=== PATIENT | male | born 1955 | race African-American/Black ===

== ENCOUNTER 2020-06-15 02:04 | Inpatient (IN) | payer MEDICARE ==
[2020-06-15] MEDS ORDERED: Acetaminophen 325 MG TAB PO PRN ×3 (04:27→15:26)
[2020-06-15] MEDS ORDERED: HumaLOG 300 UNITS/3 ML VIAL SC PRN (04:54)
[2020-06-15] MEDS ORDERED: Dextrose 5% in Water 1,000 ML IV PRN (04:54)
[2020-06-15] MEDS ORDERED: Dextrose 50% Abboject 50 ML SYRINGE SLOW IVP PRN (04:54)
--- NOTE | 2020-06-15 05:03 | PDOC.BPN ---
- Brief Progress Note [id number] HP dictated
[2020-06-15 05:28] LABS: #Basophils 0.1 thou/uL (0.0-0.2); #Eosinphils 0.1 thou/uL (0.0-0.7); #Lymphocytes 2.7 thou/uL (1.20-3.40); #Monocytes 0.5 thou/uL (0.11-0.59); #Neutrophils 3.7 thou/uL (1.40-6.50); %Basophils 1.4 % (0.0-1.0); %Eosinophils 1.3 % (0.0-10.0); %Monocytes 7.4 % (0.0-10.0); %Neutrophils 51.9 % (42.0-75.0); Hemoglobin 14.6 g/dL (14.0-18.0); Mean Corpuscular HGB CONC 33.6 g/dL (32.0-36.0); Mean Corpuscular Hemoglobin 32.2 pg (27.0-31.0); Mean Corpuscular Volume 95.8 fL (78.0-98.0); Mean Platelet Volume 7.9 fL (7.4-10.4); Platelet Count 222 thou/uL (130-400); RBC Distribution Width 12.3 % (11.5-14.5); Red Blood Cell (RBC) Count 4.54 mill/uL (4.70-6.10); White Blood Cell (WBC) Count 7.1 thou/uL (4.8-10.8)
--- NOTE | 2020-06-15 05:42 | HP ---
CHIEF COMPLAINT: Possible stroke. HISTORY OF PRESENT ILLNESS: Mr. Nath is a 64-year-old male with past medical history of diabetes mellitus, type 2, hyperlipidemia, benign prostatic hypertrophy and cigarette smoker, is being transferred to our facility for possible stroke. The patient reports at some point during the day he developed headache and dizziness. Apparently his daughter came home and felt like he had slurred speech and was dragging his left leg. He started having numbness on the left side of his face on Thursday. He was seen at [facility] in [place], where he had CT scan of the head, which showed acute right MCA infarct. CT angiogram reportedly showed occlusion of the right MCA and perfusion showed salvageable brain tissue. Dr. Madrigal was consulted and asked that the patient be transferred here. ED physicians discussed the case with Dr. Madrigal prior to transfer and he reported intervention is not likely. 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 The patient denies word-finding or difficulty with speech. He has no visual changes. The patient said that he feels dizzy when he stands up. PAST MEDICAL HISTORY: As mentioned above in the history of present illness. PAST SURGICAL HISTORY: Tonsils. FAMILY HISTORY: Reviewed, noncontributory. SOCIAL HISTORY: He smokes half pack per day. Denies alcohol drinking, drug abuse. FAMILY HISTORY: Reviewed and noncontributory. ALLERGIES: NO KNOWN ALLERGIES. REVIEW OF SYSTEMS: Review of 14 systems negative except as mentioned in the history of present illness. PHYSICAL EXAMINATION: GENERAL: The patient is awake and alert, does not appear to be in acute distress. VITAL SIGNS: Blood pressure 142/81, pulse is 74, respiratory rate is 18, temperature 98.3, oxygen saturation 99% on room air. HEAD AND NECK: Normocephalic, atraumatic. NECK: Supple. No JVD. CHEST: Fair bilateral air entry. HEART: S1, S2. Regular. ABDOMEN: Soft, nontender. Bowel sounds present. NEUROLOGIC: Awake, alert, oriented x3. No focal deficits can be appreciated at this time, but the patient said he gets dizzy once he starts walking. LABORATORY DATA: Labs not available at this time. We will order labs, CT of the brain as mentioned above in history of present illness. ASSESSMENT: 1. Acute right middle cerebral artery infarct/cerebrovascular accident. 2. Diabetes mellitus type 2. 3. Hyperlipidemia. 4. Cigarette smoker. PLAN: 1. Admit. 2. Tele monitor. 3. Aspirin was given in the emergency room. 4. Neurosurgery was consulted by ED physician. 5. Consult Neurology in a.m. for evaluation and further management. 6. Reconcile home medications. 7. DVT prophylaxis as appropriate. 8. 2D echo. 9. Lipid panel. 10. Expected length of stay, 2 midnights or more. Job ID: [id number]
[2020-06-15 05:52] LABS: ALT (SGPT) 16 U/L (8-55); AST (SGOT) 17 U/L (5-34); Albumin 3.9 g/dL (3.4-4.8); Alkaline Phosphatase 86 U/L (40-110); Anion Gap 15 mmol/L (10-20); BUN (Urea Nitrogen) 12 mg/dL (8.4-25.7); Bilirubin, Total 0.6 mg/dL (0.2-1.2); Calc. Creatinine Clearance 0 mL/min (70-130); Carbon Dioxide 24 mmol/L (23-31); Chloride 104 mmol/L (98-107); Estimated GFR-MDRD 72; Globulin 2.4 g/dL (2.4-3.5); Glucose 100 mg/dL (80-115); Potassium 3.6 mmol/L (3.5-5.1); Protein, Total 6.3 g/dL (5.8-8.1); Sodium 139 mmol/L (136-145)
--- NOTE | 2020-06-15 07:40 | CT ---
PRELIMINARY REPORT/[facility]/EMERGENCY AFTER HOURS PROCEDURE: EXAM: CT Head Without Intravenous Contrast. CLINICAL HISTORY: Unactivated stroke transfer, left side weakness// TECHNIQUE: Axial computed tomography images of the head/brain without intravenous contrast. COMPARISON: None provided. FINDINGS: BRAIN: Cortical-based low density noted in the posterior aspect of the right MCA distribution which appears to be more subacute than acute without mass-effect on the adjacent posterior horn of the right latera l ventricle. Ischemic changes extend to the insular ribbon anteriorly and superiorly towards the con vexity. No hemorrhage identified. VENTRICLES: No hydrocephalus. ORBITS: The orbits are unremarkable. SINUSES AND MASTOIDS: The paranasal sinuses and mastoid air cells are clear. SOFT TISSUES: No significant facial or scalp soft tissue swelling evident. No radiopaque foreign body is seen. BONES: No acute skull fracture. IMPRESSION: Acute-subacute right MCA infarct. ELECTRONICALLY SIGNED BY: Liam Concepcion MD Jun 15, 2020 4:00:38 AM AIRPLANE CABIN ATTENDANT This report is intended for review by the ordering physician only, in accordance of law. If you recei ve this report in error, please call [facility] at [phone]. FINAL REPORT EMERGENT AFTER HOURS CT OF THE BRAIN WITHOUT CONTRAST: FINDINGS/IMPRESSION: I agree with the findings and impression given in the preliminary report per [facility] physici an. There is a right MCA distribution infarction. No intracranial hemorrhage is identified. POS: ISAIAH
--- NOTE | 2020-06-15 09:30 | MRI ---
Exam: Brain MRI without contrast HISTORY: Left-sided weakness. CVA. Stroke. COMPARISON: None FINDINGS: Calvarial marrow signal intensity: Appropriate T1 signal Gradient echo sequence: Hemosiderin deposition involving the right occipital lobe. Findings represent hemorrhagic conversion of a right MCA distribution infarct Brain parenchyma: Encephalomalacia and gliosis involving the right occipital temporal lobe. Distribut ion corresponds to right MCA distribution infarct. Cortical ivey-white matter differentiation: Left cerebrum demonstrates preservation of cortical ivey- white white matter differentiation Restricted diffusion: Central arterial flow is maintained. Abrupt termination of flow void in the rig ht M2 segment at the level of sylvian fissure. There is restricted diffusion in the right MCA distribution. White matter signal intensities:Edema and gliosis with resultant FLAIR signal intensity in the right MCA distribution. Sinuses: Adequate aeration of the paranasal sinuses and mastoid air cells. IMPRESSION: 1. Right MCA distribution infarct. 2. Occlusion of the right M2 segment at the level of the sylvian fissure
[2020-06-15] MEDS ORDERED: Aspirin 325 MG TAB ONE (09:40)
[2020-06-15] MEDS ORDERED: Enoxaparin Sodium 40 MG/0.4 ML SYRINGE ONE (09:40)
[2020-06-15] MEDS: Enoxaparin Sodium 40 MG/0.4 ML SYRINGE SC SCH (09:46)
[2020-06-15] MEDS: Aspirin 325 mg Enteric Coated Tablet PO SCH (09:46)
[2020-06-15 12:47] LABS: SARS-CoV-2 MS2 Positive; SARS-CoV-2 N Gene Negative; SARS-CoV-2 S Gene Negative; SARS-CoV-2 by NAA Not Detected (NotDetected); SARS-CoV-2 orf1ab Negative
[2020-06-15 13:01] VITALS: BMI 24.8
--- NOTE | 2020-06-15 14:02 | CON ---
NEUROLOGY CONSULTATION DATE OF CONSULTATION: 06/15/2020 REASON FOR CONSULTATION: Stroke. HISTORY OF PRESENT ILLNESS: Mr. Nath is a 64-year-old male with medical history significant for diabetes, hyperlipidemia, benign prostatic hypertrophy, and tobacco abuse, transferred to our facility for possible stroke. Per the patient, he developed headache and dizziness with slurred speech, which was noted by his daughter, and he was also reported to be dragging his left leg. The patient started having numbness on the left side of the face on Thursday and was seen at [facility] in [place], where he had a head CT done, which showed acute right MCA infarct. CT angiogram showed occlusion of the right MCA and perfusion showed salvageable brain tissue. Dr. Madrigal was consulted and asked that the patient be transferred to [facility]. The ED physician discussed the case with Dr. Madrigal prior to transfer and he reported intervention is not likely at this point. The patient had chronic numbness of the left upper extremity from previous brachial plexopathy. Currently, he does have weakness of the left upper and lower extremity with balance issues and mild left facial droop. The patient denies nausea, vomiting, chest pain, abdominal pain, recent illness, or recent exposure to COVID. REVIEW OF SYSTEMS: All systems reviewed and were negative except the pertinent positives and negatives mentioned in the HPI. PAST MEDICAL HISTORY: Diabetes, hyperlipidemia, benign prostatic hypertrophy, and tobacco abuse. PAST SURGICAL HISTORY: Tonsillectomy. FAMILY HISTORY: No significant family history. SOCIAL HISTORY: The patient smokes half a pack a day. Denies drinking or illegal drug abuse. ALLERGIES: NO KNOWN DRUG ALLERGIES. PHYSICAL EXAMINATION: VITAL SIGNS: Blood pressure 142/80, pulse 70, respiratory rate 18. GENERAL: Alert and awake male, in no acute distress. CVS: Regular rate and rhythm. CHEST: Clear. ABDOMEN: Soft. NECK: Supple. NEUROLOGIC: Mental status, the patient is alert and oriented to person, place, and time. Speech is clear. Cranial nerves 2 through 12 are intact except mild left facial droop. Motor, muscle tone and bulk are normal. Strength 5/5 in the right upper and lower extremity, 4+/5 in the left lower extremity, and 3+/5 in the right upper extremity. Sensory, decreased sensation in the left upper extremity. Cerebellar, slow on the left secondary to weakness. Gait deferred due to the patient's safety reasons. DATA REVIEWED: I reviewed the CT of the brain, which was negative for acute intracranial pathology. MRI showed acute right MCA infarct. ASSESSMENT AND PLAN: Mr. Mario Nath is a 64-year-old male, presented with stroke-like symptoms and positive for acute infarction in the right middle cerebral artery territory. MRI of the brain reviewed, which was consistent with acute right middle cerebral artery infarction. CTA of the neck was unremarkable. CTA head showed occlusion of the right MCA. The patient was seen by Neurosurgery and he is not a candidate for mechanical embolectomy. 2D echo completed, left ventricular ejection fraction 55% to 60%, no thrombus or PFO. Telemetry to rule out arrhythmias. EEG to rule out cortical irritability because of right MCA infarction. Start aspirin and high-intensity statin for secondary stroke prevention, and continue home medications. Permissive control of blood pressure at this time. Control of blood glucose. Neuro checks every 4 hours Deep venous thrombosis prophylaxis. We will continue to follow. Plan discussed with the patient and the nursing staff Thank you for the consult. Job ID: [id number] [id number]
--- NOTE | 2020-06-15 14:10 | PRG ---
DATE OF SERVICE: 06/15/2020 Mr. Nath is a 64-year-old gentleman, who presented to the [facility] with altered mental status, hemiparesis, and slurred speech. He had a CT examination performed there, which shows area of hypodensity in the posterior frontal and parietal regions on the right side. He had a CT angiogram performed, which shows occlusion of the posterior branch of the M2 segment of the right middle cerebral artery. He was transferred to [facility] for further evaluation. Upon arrival, he underwent repeat CT examination, which showed further evolution and increase in size of the infarct. A decision was made not to move forward with mechanical thrombectomy due to the size of the infarct as well as the location of the clot in the distal aspect of the M2 segment. Job ID: [id number]
--- NOTE | 2020-06-15 17:20 | PDOC.EEG ---
Neurology EEG Report - Report Report: This EEG was performed using 24 channel [employer] video digital EEG machine with 24 disc electrodes. This was an extended 2-hour 10 minutes of inpatient video EEG recording. Digital analysis of the EEG was done for Brian and seizure detection which revealed no abnormalities Background: The posterior background rhythm is 9-10 hz. Minimal reactivity seen with eye opening and closure. Hyperventilation: Not performed. Photic stimulation. Bioccipital symmetric response seen with photic stimulation. Sleep: Drowsiness is observed. EEG diagnosis: Normal awake and drowsy EEG.
--- NOTE | 2020-06-15 17:28 | PDOC.HOSPP ---
- Subjective Encounter Date: 06/15/20 Encounter Time: 13:30 Subjective: left sided weakness is getting better daughter at bedside is fully oriented - Objective Vital Signs & Weight: Vital Signs (12 hours) Temp Pulse Pulse Pulse Resp BP BP 06/15/20 16:05 76 76 124/71 144/76 H 06/15/20 15:40 97.4 F L 67 16 06/15/20 13:08 61 68 109/60 132/63 06/15/20 12:25 98.0 F 73 14 BP Pulse Ox 06/15/20 16:05 06/15/20 15:40 134/76 97 06/15/20 13:08 06/15/20 12:25 126/69 96 Weight Weight 173 lb 3 oz Result Diagrams: 06/15/20 05:13 06/15/20 05:13 Additional Labs: Accuchecks 06/15/20 16:36 POC Glucose 73 Hospitalist ROS - Medication Medications: Active Medications Generic Name Dose Route Start Last Admin Trade Name Freq PRN Reason Stop Dose Admin Aspirin 325 mg 06/15/20 09:00 06/15/20 09:46 Aspirin 325 Mg Enteric Coated Tablet PO 325 mg DAILY JACINTO Administration Enoxaparin Sodium 40 mg 06/15/20 09:00 06/15/20 09:46 Enoxaparin Sodium 40 Mg/0.4 Ml Syringe SC 40 mg 0900 JACINTO Administration - Exam General Appearance: awake alert Eye: PERRL, anicteric sclera ENT: no oropharyngeal lesions, moist mucosa Neck: supple, no JVD Heart: RRR, no murmur Respiratory: no wheezes, no rales Gastrointestinal: soft, non-tender, non-distended, normal bowel sounds Extremities: no cyanosis, no edema Neurological - other findings: left hemiparesis 4/5 lower and 3/5 upper Psychiatric: normal affect, A&O x 3 Hosp A/P (1) Acute CVA (cerebrovascular accident) Code(s): I63.9 - CEREBRAL INFARCTION, UNSPECIFIED Status: Acute (2) HTN (hypertension) Code(s): I10 - ESSENTIAL (PRIMARY) HYPERTENSION Status: Chronic Qualifiers: Hypertension type: essential hypertension Qualified Code(s): I10 - Esse ntial (primary) hypertension (3) DM type 2 (diabetes mellitus, type 2) Status: Chronic Qualifiers: Diabetes mellitus manager terminal insulin use: without manager terminal use (4) Dyslipidemia Code(s): E78.5 - HYPERLIPIDEMIA, UNSPECIFIED Status: Chronic - Plan Initial w/u done at [facility], was transfered here for possible thrombectomy/[facility] procedure by no nsx intervention done due to size of infarct has chronic left UE weakness, now has lower ext mild deficit, is right handed MRI results noted, await echo results is in sinus rhythm on telemetry has dizziness, await PT eval for dc planning hemo/neurostable full updates were given to patient and his daughter at bedside.
[2020-06-15] MEDS: Atorvastatin Calcium 40 MG TAB PO SCH (21:08)
[2020-06-16] MEDS: Tamsulosin HCl 0.4 MG CAP PO SCH (09:29)
[2020-06-16] MEDS: Enoxaparin Sodium 40 MG/0.4 ML SYRINGE SC SCH (09:29)
[2020-06-16] MEDS: Aspirin 325 mg Enteric Coated Tablet PO SCH (09:29)
--- NOTE | 2020-06-16 11:17 | PDOC.HOSPP ---
- Subjective Encounter Date: 06/16/20 Encounter Time: 07:30 Subjective: Patient is doing much better, he is able to ambulate with the physical therapy, he had no overnight event, he has no headache, no new neurological problem - Objective Vital Signs & Weight: Vital Signs (12 hours) Temp Pulse Resp BP Pulse Ox 06/16/20 08:00 97 06/16/20 07:46 98.1 F 76 16 123/77 97 06/15/20 23:48 98.0 F 72 16 124/65 100 06/15/20 23:27 97.7 F 91 16 114/63 95 Weight Weight 173 lb 3 oz I&O: 06/15/20 06/16/20 06/17/20 06:59 06:59 06:59 Intake Total 480 Output Total 400 Balance -400 480 Result Diagrams: 06/15/20 05:13 06/15/20 05:13 Additional Labs: Accuchecks 06/16/20 06/16/20 06/15/20 10:06 05:18 21:09 POC Glucose 172 H 110 H 157 H 06/15/20 16:36 POC Glucose 73 Radiology Reviewed by me: Yes EKG Reviewed by me: Yes Hospitalist ROS - Review of Systems ENT: denies: ear pain, ear discharge, nose pain, nose discharge, nose congestion, mouth pain, mouth swelling, throat pain, throat swelling, other Respiratory: denies: cough, dry, shortness of breath, hemoptysis, SOB with excertion, pleuritic pain, sputum, wheezing, other Cardiovascular: denies: chest pain, palpitations, orthopnea, paroxysmal noc. dyspnea, edema, light headedness, other Gastrointestinal: denies: nausea, vomiting, abdominal pain, diarrhea, constipation, melena, hematochezia, other Genitourinary: denies: dysuria, frequency, incontinence, hematuria, retention, other Musculoskeletal: denies: neck pain, shoulder pain, arm pain, back pain, hand pain, leg pain, foot pain, other - Medication Medications: Active Medications Generic Name Dose Route Start Last Admin Trade Name Freq PRN Reason Stop Dose Admin Aspirin 325 mg 06/15/20 09:00 06/16/20 09:29 Aspirin 325 Mg Enteric Coated Tablet PO 325 mg DAILY JACINTO Administration Atorvastatin Calcium 40 mg 06/15/20 21:00 06/15/20 21:08 Atorvastatin Calcium 40 Mg Tab PO 40 mg HS JACINTO Administration Enoxaparin Sodium 40 mg 06/15/20 09:00 06/16/20 09:29 Enoxaparin Sodium 40 Mg/0.4 Ml Syringe SC 40 mg 0900 JACINTO Administration Tamsulosin HCl 0.4 mg 06/16/20 09:00 06/16/20 09:29 Tamsulosin Hcl 0.4 Mg Cap PO 0.4 mg DAILY JACINTO Administration - Exam General Appearance: NAD, awake alert Eye: PERRL, anicteric sclera ENT: normocephalic atraumatic, no oropharyngeal lesions Neck: supple, symmetric, no JVD, no thyromegaly Heart: RRR, no murmur, no gallops, no rubs Respiratory: no wheezes, no rales, no ronchi Gastrointestinal: soft, non-tender, non-distended, normal bowel sounds Extremities: no cyanosis, no clubbing, no edema Skin: no lesions, no rashes Neurological: no new deficit Musculoskeletal: normal tone, normal strength Psychiatric: normal affect, normal behavior, A&O x 3 Hosp A/P (1) Acute CVA (cerebrovascular accident) Code(s): I63.9 - CEREBRAL INFARCTION, UNSPECIFIED Status: Acute (2) DM type 2 (diabetes mellitus, type 2) Status: Chronic Qualifiers: Diabetes mellitus long term acute care registered nurse insulin use: without long term acute care registered nurse use (3) Dyslipidemia Code(s): E78.5 - HYPERLIPIDEMIA, UNSPECIFIED Status: Chronic (4) HTN (hypertension) Code(s): I10 - ESSENTIAL (PRIMARY) HYPERTENSION Status: Chronic Qualifiers: Hypertension type: essential hypertension Qualified Code(s): I10 - Essential (primary) hypertension (5) Benign enlargement of prostate Code(s): N40.0 - BENIGN PROSTATIC HYPERPLASIA WITHOUT LOWER URINRY TRACT SYMP Status: Chronic Qualifiers: Lower urinary tract symptom presence: symptoms absent Qualified Code(s): N40.0 - Benign prostatic hyperplasia without lower urinary tract symptoms - Plan old records reviewed/req, PT/OT, speech therapy Patient is doing much better, Plan is to continue medical therapy Continue stroke team evaluation Expecting discharge in next 24 hours We will adjust medication while in hospital today, I have discussed with the patient about all test result and explained in the way he can understand.
[2020-06-16] MEDS: Atorvastatin Calcium 40 MG TAB PO SCH (20:14)
[2020-06-17] MEDS: Tamsulosin HCl 0.4 MG CAP PO SCH ×2 (07:42→07:43)
[2020-06-17] MEDS: Aspirin 325 mg Enteric Coated Tablet PO SCH (07:43)
[2020-06-17] MEDS: Enoxaparin Sodium 40 MG/0.4 ML SYRINGE SC SCH (07:43)
--- NOTE | 2020-06-17 10:51 | PDOC.DS.DS ---
Provider - Provider Date of Admission: 06/15/20 04:35 Date of Discharge: 06/17/20 Admitting Provider: Weston Leblanc MD Consultations: Neurology, Interventional Stroke Primary Care Physician: Scottie Pinedo MD Course - Hospital Course Hospital Course: 64-year-old male who has past medical history of dyslipidemia, diabetes type 2, benign enlargement of prostate, tobacco abuse disorder who was transferred from [facility] for stroke. Patient had initial work-up at [facility]. Patient was found with acute right MCA infarct, CT angiography showed occlusion of right MCA and perfusion showed salvageable brain tissue, Dr. Madrigal was consulted and he asked to transfer this patient to [facility]. Upon transfer patient had another CT his brain in our hospital which showed progression of infarct and based on size of the infarct Dr. Madrigal decided that patient is not a good candidate for surgical intervention. He recommended to continue medical therapy. After admission patient had echocardiography which showed EF 55 to 60%, MRI brain showed right MCA distribution infarct, occlusion of the right M2 segment at the level of sylvian fissure. After transfer from [facility] patient had CT brain which showed acute subacute right MCA infarct. Neurology was also consulted and they were following while in hospital. Patient had significant improvement while in hospital. Patient walked almost 400 feet with the physical therapy and they recommended outpatient physical therapy and occupational therapy as well as outpatient speech therapy. Patient's blood pressure was remaining normal even without blood pressure medication so he did not require any blood pressure medication. He will continue aspirin and statin. Patient did not have any arrhythmia as well and does not require any thrombotic medication. Patient seen and examined bedside today Resuscitation Status: 06/15/20 04:27 Resuscitation Status Routine Resuscitation Status: FULL: Full Resuscitation - Labs Lab Results: 06/15/20 05:13 06/15/20 05:13 - Physical Exam Vitals: Vital Signs (12 hours) Temp Pulse Resp BP BP Pulse Ox 06/17/20 07:41 98.3 F 81 16 114/66 96 06/17/20 03:27 97.2 F L 78 16 125/66 94 L 06/17/20 00:00 98.0 F 81 18 117/69 94 L Weight Weight 173 lb 3 oz Physical Exam: The patient was seen and examined on the day of discharge. General patient is currently alert and awake no acute distress Head normocephalic atraumatic Neck supple no JVD no meningeal signs of irritation Lungs clear to auscultation without any rhonchi rales Cardiac S1-S2 regular, no murmur no gallop no rub Abdomen soft, bowel sounds present, nontender nondistended no organomegaly no mass Extremity no edema Neurologic patient speech is normal, patient is moving all 4 limbs, Problem - Problem (1) Acute CVA (cerebrovascular accident) Code(s): I63.9 - CEREBRAL INFARCTION, UNSPECIFIED Status: Acute (2) DM type 2 (diabetes mellitus, type 2) Status: Chronic Qualifiers: Diabetes mellitus fpc insulin use: without fpc use (3) Dyslipidemia Code(s): E78.5 - HYPERLIPIDEMIA, UNSPECIFIED Status: Chronic (4) HTN (hypertension) Code(s): I10 - ESSENTIAL (PRIMARY) HYPERTENSION Status: Chronic Qualifiers: Hypertension type: essential hypertension Qualified Code(s): I10 - Essential (primary) hypertension (5) Benign enlargement of prostate Code(s): N40.0 - BENIGN PROSTATIC HYPERPLASIA WITHOUT LOWER URINRY TRACT SYMP Status: Chronic Qualifiers: Lower urinary tract symptom presence: symptoms absent Qualified Code(s): N40.0 - Benign prostatic hyperplasia without lower urinary tract symptoms Plan - Discharge Medications Prescriptions: Aspirin [Ecotrin Regular Strength] 325 mg PO DAILY #30 tab Atorvastatin Calcium [Lipitor] 40 mg PO HS #30 tab Home Medications: Medication Instructions Recorded Confirmed Type Tamsulosin HCl 0.4 mg PO DAILY 06/15/20 06/15/20 History metFORMIN [Glucophage] 500 mg PO BID-WM 06/15/20 06/15/20 History Aspirin [Ecotrin Regular Strength] 325 mg PO DAILY #30 tab 06/17/20 Rx Atorvastatin Calcium [Lipitor] 40 mg PO HS #30 tab 06/17/20 Rx Allergies: No Known Allergies Allergy (Unverified 06/15/20 04:33) - Discharge Instructions Activity:: Activity as Tolerated Nourishment:: Diabetic Diet Therapies:: Not Applicable Equipment/Supplies:: Not Applicable IV Therapy:: Not Applicable - Follow up Plan Referrals: Scottie Pinedo MD [Primary Care Provider] - Disposition: HOME Quality - Care Measures CORE MEASURES:: Stroke/TIA - Stroke/TIA Did you prescribe antithrombotic therapy?: Yes Did you prescribe anticoagulant for A Fib/Flutter?: No Specify reason for no DC anticoagulant: Treatment not indicated Did you prescribe a statin medication?: Yes
[2020-06-17 11:55] VITALS: BP 127/73; TEMP 98.2
--- NOTE | 2020-06-19 12:40 | PQF ---
CLINICAL DOCUMENTATION CLARIFICATION FORM: Dear : Ranjana Melendez Date / Time: 06/19/2020 Please exercise your independent, professional judgment in responding to the clarification form. Clinical indicators are provided on the bottom of this form for your review Please check appropriate box(es): [ x ] CVA with hemiparesis [ ] CVA without hemiparesis [ ] Other diagnosis [ ] Unable to determine In addition, please specify: Present on Admission (POA): [x ] Yes [ ] No [ ] Unable to determine To be completed by CDI/Coding staff for physician review: Present Clinical Indicators - Signs / Symptoms / Labs Results and Location in Medical Record [ x ] Patient presented with altered mental status, hemiparesis and slurred speech Progress note 06/15 by Manolo [facility] MD [ x ] Has chronic left UE weakness, now has lower extremity mild deficit, is right handed Progress note 06/15 by Claudio Pan MD [ x ] Neurologic: Patient is moving all 4 limbs Discharge summary [ x ] Left sided weakness is getting better Progress note 06/15 by Claudio Pan MD Present Risk Factors Results and Location in Medical Record [ x ] Acute CVA, hypertension Discharge summary [ x ] Chronic left upper extremity weakness Progress note 06/15 by Claudio Pan MD Present Treatments Results and Location in Medical Record [ x ] Brain MRI 06/15 Reports [ x ] Neurology consult 06/15 Reports [ x ] Transferred here for possible thrombectomy Progress note 06/15 by Claudio Pan MD CDS/Gum Worker Signature: [id number] Phone #: Date/Time: 06/19/2020 This is a permanent part of the Medical Record [facility]
== END 2020-06-17 12:22 | disposition home or self-care (01) | DRG 65 ==
LOC: ERS 02:04 → ERHOLD 04:35 → 2SE 04:35
PROVIDERS: ADMIT Internal Medicine; ATTEND Internal Medicine
DX: I63.511 Cerebral infarction due to unspecified occlusion or stenosis of right middle cerebral artery (principal); G81.94 Hemiplegia, unspecified affecting left nondominant side; E11.9 Type 2 diabetes mellitus without complications; Z20.828 Contact with and (suspected) exposure to other viral communicable diseases; E78.5 Hyperlipidemia, unspecified; I10 Essential (primary) hypertension; F17.210 Nicotine dependence, cigarettes, uncomplicated; N40.0 Benign prostatic hyperplasia without lower urinary tract symptoms; R47.81 Slurred speech; Z90.89 Acquired absence of other organs
CPT/HCPCS: 36415; 36416; 70450; 70551; 80053; 80061; 85025; 87635; 93306; 94760; 95712; 95819; 95957; J1650; U0003

== ENCOUNTER 2021-11-27 14:32 | Outpatient (CLI) | payer MEDICARE | END 2021-11-27 14:33 | disposition home or self-care (01) | LOC: BICRAD 14:32 | PROVIDERS: ATTEND Student in an Organized Health Care Education/Training Program | DX: M25.612 Stiffness of left shoulder, not elsewhere classified (principal); M19.012 Primary osteoarthritis, left shoulder; M43.8X4 Other specified deforming dorsopathies, thoracic region ==